=== PATIENT | female | born 1950 | race Caucasian/White ===

== ENCOUNTER 2017-07-15 13:00 | Outpatient (CLI) | payer OTHER | END 2017-07-15 13:02 | LOC: LAB 13:00 | PROVIDERS: ATTEND Internal Medicine Endocrinology, Diabetes & Metabolism | DX: E20.9 Hypoparathyroidism, unspecified (principal); E03.9 Hypothyroidism, unspecified; E78.5 Hyperlipidemia, unspecified | CPT/HCPCS: 36415; 80061; 80069; 82306; 83735; 84443 ==